=== PATIENT | female | born 1975 | race Caucasian/White ===

== ENCOUNTER → 2018-02-26 | Outpatient (CLI) | payer OTHER | END | disposition home or self-care (01) | LOC: MAMMO 14:07 | DX: Z12.31 Encounter for screening mammogram for malignant neoplasm of breast (principal) | CPT/HCPCS: 77063; 77067 ==

== ENCOUNTER → 2018-09-16 | Outpatient (CLI) | payer OTHER ==
[2015-12-29 16:06] VITALS: BP 105/67
[~2018-09-16] MED LIST: OXYC1TAB15 PO
--- NOTE | 2018-09-16 16:25 | RAD ---
Abdominal ultrasound, 09/16/2018: HISTORY: Abdominal pain The gallbladder is surgically absent. The common hepatic duct at the katerin hepatis measures 6-7 mm which is within normal limits for the postcholecystectomy state. No hepatic mass is identified. The visualized portions of the pancreas, spleen and both kidneys are unremarkable. The abdominal aorta and inferior vena cava show no abnormality. No free fluid is evident in the abdomen. IMPRESSION: 1. Status post cholecystectomy. 2. No acute abdominal abnormality is detected. Electronically signed by: Miky Loyd MD (09/16/2018 4:20 PM) [facility]
== END | disposition home or self-care (01) ==
LOC: US 15:34
PROVIDERS: ATTEND Internal Medicine Gastroenterology
DX: R10.9 Unspecified abdominal pain (principal); Z90.49 Acquired absence of other specified parts of digestive tract
CPT/HCPCS: 76700

== ENCOUNTER → 2021-06-27 | Outpatient (CLI) | payer OTHER ==
[2015-12-29 16:06] VITALS: BP 105/67
--- NOTE | 2021-06-27 15:36 | RAD ---
US BREAST BILAT HISTORY: The patient is 45 years old and is seen for Reason: RIGHT BREAST LUMP / Spl. Instructions: / History: . COMPARISON: February 26, 2018 mammogram. TECHNIQUE: CC and MLO views of both breasts were obtained. Images were processed by the [employer] computer-aided detection system. Targeted ultrasound was also performed of the bilateral breasts. DENSITY: The breast parenchyma is heterogeneously dense. This may lower the sensitivity of mammograph y. FINDINGS: Right mammogram: Well-circumscribed mass corresponding with patient's palpable concern measures 2.9 x 2.0 cm approximately 8.1 cm from the nipple posterior depth upper outer. Additional well-circumscrib ed masses within the right breast. Decreased mass within the right medial breast compared to prior. Right ultrasound: Well-circumscribed large cyst within the right breast 11:00 position 6 cm from the nipple measures 3.0 x 2.5 x 1.6 cm corresponding with mammographic finding. Left mammogram: Small with well-circumscribed mass within the left inferior medial breast measures 0. 7 cm approximately 4.3 cm from the nipple. Benign-appearing calcifications within the left outer sar[address]. Left ultrasound: Small complicated cysts within the left breast position 5 cm from the nipple measure s 0.3 x 0.3 x 0.2 cm and 6:00 position 6 cm from the nipple measures 0.2 x 0.5 x 0.2 cm. Correspondin g with mammographic findings. IMPRESSION: 1. Bilateral breast cysts corresponding with mammographic findings and palpable finding on the right . Recommend annual screening mammograms per [employer] guidelines. She will be due in one year. BI-RADS category 2 Benign Patient entered into a reminder system for annual screening mammogram. Electronically signed by: Darrian Hernandez DO (06/27/2021 3:34 PM) [id number]
--- NOTE | 2021-06-27 15:36 | RAD ---
PROCEDURE: MG DIGITAL BILAT DIAGNOSTIC MAMMO WITH MATHIEU HISTORY: The patient is 45 years old and is seen for Reason: RIGHT BREAST LUMP / Spl. Instructions: / History: . COMPARISON: February 26, 2018 mammogram. TECHNIQUE: CC and MLO views of both breasts were obtained. Images were processed by the [employer] computer-aided detection system. Targeted ultrasound was also performed of the bilateral breasts. DENSITY: The breast parenchyma is heterogeneously dense. This may lower the sensitivity of mammograph y. FINDINGS: Right mammogram: Well-circumscribed mass corresponding with patient's palpable concern measures 2.9 x 2.0 cm approximately 8.1 cm from the nipple posterior depth upper outer. Additional well-circumscrib ed masses within the right breast. Decreased mass within the right medial breast compared to prior. Right ultrasound: Well-circumscribed large cyst within the right breast 11:00 position 6 cm from the nipple measures 3.0 x 2.5 x 1.6 cm corresponding with mammographic finding. Left mammogram: Small with well-circumscribed mass within the left inferior medial breast measures 0. 7 cm approximately 4.3 cm from the nipple. Benign-appearing calcifications within the left outer sar[address]. Left ultrasound: Small complicated cysts within the left breast position 5 cm from the nipple measure s 0.3 x 0.3 x 0.2 cm and 6:00 position 6 cm from the nipple measures 0.2 x 0.5 x 0.2 cm. Correspondin g with mammographic findings. IMPRESSION: 1. Bilateral breast cysts corresponding with mammographic findings and palpable finding on the right . Recommend annual screening mammograms per [employer] guidelines. She will be due in one year. BI-RADS category 2 Benign Patient entered into a reminder system for annual screening mammogram. Electronically signed by: Darrian Hernandez DO (06/27/2021 3:33 PM) [id number]
== END ==
LOC: US 14:00
PROVIDERS: ATTEND Family Medicine
DX: N60.02 Solitary cyst of left breast (principal); N60.01 Solitary cyst of right breast; N63.11 Unspecified lump in the right breast, upper outer quadrant
CPT/HCPCS: 76641; 77066; G0279; 77062

== ENCOUNTER 2021-12-19 10:54 | Emergency (ER) | payer BC, OTHER ==
[~2021-12-19] VITALS: Ht 162.6 cm; Wt 92.9 kg
--- NOTE | 2021-12-19 11:58 | RAD ---
STUDY: US DPLX VENOUS EXTREMITY LOWER RT INDICATION: Right leg swelling. Postop knee scope 3 weeks ago. TECHNIQUE: Color-flow and pulsed wave duplex ultrasound with compression of venous structures of the right lower extremity. COMPARISON: None Available. FINDINGS: Duplex ultrasound with compression of the deep venous structures of the right lower extremity from th e common femoral vein through the popliteal vein is negative for DVT. The posterior tibial and peroneal veins are segmentally visualized and patent where seen. Normal veno us waveforms and augmentation are noted throughout. IMPRESSION: No deep venous thrombosis of the right lower extremity. Electronically signed by: Hollis Yeboah MD (12/19/2021 11:56 AM) [id number]
--- NOTE | 2021-12-19 12:10 | PHYS DOC ---
Past Medical History Past Medical History: No Pertinent History Past Surgical History: Cholecystectomy, Other Additional Past Surgical Histo: BILATERAL MYRINGOTOMY W/ TUBES,LASIK, RT knee scope Smoking Status: Unknown if ever smoked Alcohol Use: None Drug Use: None General Adult EDM: Chief Complaint: LOWER EXTREMITY SWELLING HPI: HPI: Patient is a 46 year old female who presents with 2-week history of right calf pain and 3-day history of right calf swelling. Patient states that she had a knee scope. At her postop appointment, she did mention that she was having calf pain, but at that time it was not swollen. Patient called her primary care provider this morning, but did not hear back. A friend suggested to present to the emergency department to rule out blood clot. Patient has no other complaints at this time, including shortness of breath or chest pain. Review of Systems: Review of Systems: ROS negative or noncontributory except as mentioned in HPI. Heart Score: C/O Chest Pain: No Allergies: Allergies: Allergies Coded Allergies Type Severity Reaction Last Updated Verified cephalexin Allergy Severe Anaphylaxis 12/19/21 Yes Sulfa (Sulfonamide Antibiotics) Allergy Intermediate 12/19/21 Yes Physical Exam: PE: Constitutional: Well developed, well nourished, no acute distress, non-toxic appearance. HENT: Normocephalic, atraumatic, bilateral external ears normal, nose normal. Eyes: EOMI, conjunctiva normal, no discharge. Neck: Normal range of motion, no stridor. Cardiovascular: Heart regular rate and rhythm. Lungs & Thorax: Bilateral breath sounds clear to auscultation. Skin: Warm, dry, no erythema, no rash. Extremities: Right lower leg edematous with tenderness to palpation along posterior aspect no cyanosis, negative Homans' sign, no clubbing, active ROM intact. Neurologic: Alert and oriented x4, normal motor function, normal sensory function, steady and symmetrical upright gait, no focal deficits noted. Current Patient Data: Vital Signs: Vital Signs Date Time Temp Pulse Resp B/P (MAP) Pulse Ox O2 Delivery O2 Flow Rate FiO2 12/19/21 12:23 74 18 147/86 (106) 99 Room Air 12/19/21 11:07 99.1 88 20 157/80 (105) 98 Room Air 99.1 Radiology/Procedures: Radiology/Procedures: PROCEDURE: VENOUS LOWER EXTREMITY RIGHT STUDY: US DPLX VENOUS EXTREMITY LOWER RT INDICATION: Right leg swelling. Postop knee scope 3 weeks ago. TECHNIQUE: Color-flow and pulsed wave duplex ultrasound with compression of venous structures of the right lower extremity. COMPARISON: None Available. FINDINGS: Duplex ultrasound with compression of the deep venous structures of the right lower extremity from the common femoral vein through the popliteal vein is negative for DVT. The posterior tibial and peroneal veins are segmentally visualized and patent wh ere seen. Normal venous waveforms and augmentation are noted throughout. IMPRESSION: No deep venous thrombosis of the right lower extremity. Electronically signed by: Hollis Yeboah MD (12/19/2021 11:56 AM) [id number] Course & Med Decision Making: Course & Med Decision Making Pertinent Labs and Imaging studies reviewed. (See chart for details) Patient is a 46-year-old female who recently underwent lower extremity surgical procedure presenting with unilateral lower leg swelling and pain. Venous ultrasound ordered. No clot is currently seen in the right lower extremity. Discussed return precautions with patient. All of her questions were answered. Patient follow- up with her primary care provider in about 1 week and contact her surgeon for any further postoperative concerns. Patient understands and is agreeable to discharge plan. Dragon Disclaimer: Dragon Disclaimer: This electronic medical record was generated, in whole or in part, using a voice recognition dictation system. Departure Departure Impression: Primary Impression: Right calf pain Additional Impression: Postoperative edema Disposition: 01 HOME / SELF CARE / HOMELESS Condition: STABLE Referrals: AMIE SOSA MD (PCP) Patient Instructions: Edema, [id number], Muscle Cramps Additional Instructions: EMERGENCY DEPARTMENT GENERAL DISCHARGE INSTRUCTIONS Thank you for coming to [facility] Emergency Department (ED) today and trusting us with you care. We trust that you had a positive experience in our Emergency Department. If you wish to speak to the department management, you may call the director at . YOUR FOLLOW UP INSTRUCTIONS ARE FOLLOWS: 1. Follow up with your primary care doctor. If you do not have a primary doctor, please ask for a resource list of physicians or clinics that may be able to assist you with follow up care. 2. The emergency provider has interpreted your imaging studies, if any were ordered. The radiology finance specialist also reviewed them. If there is a change in the findings, you will be notified in 48 hours when at all possible. 3. If a lab test or culture has been done, your results will be reviewed and you will be notified if you need a change in treatment. 4. Call your surgeon for further postoperative management. Follow instructions verbalized to you and refer to the printouts if needed. ADDITIONAL INSTRUCTIONS AND INFORMATION: 1. Your care today has been supervised by a physician who is specially trained in emergency care. Many problems require more than one evaluation for a complete diagnosis and treatment. We recommend that you schedule your follow up appointment as recommended to ensure complete treatment of you illness or injury. If you are unable to obtain follow up care and continue to have a prob ami, or if your condition worsens, we recommend that you return to the ED. 2. We are not able to safely determine your condition over the phone nor are we able to give sound medical advice over the phone. For these safety reasons, if you call for medical advice we will ask you to come to the ED for further evaluation. 3. If you have any questions regarding these discharge instructions please call the ED at . SAFETY INFORMATION: In the interest of safety, wellness, and injury prevention; we encourage you to wear your seat belt, if you smoke; quite smoking, and we encourage family to use a protective helmet for bicycling and other sporting events that present an increased risk for head injury. IF YOUR SYMPTOMS WORSEN OR NEW SYMPTOMS DEVELOP, OR YOU HAVE CONCERNS ABOUT YOUR CONDITION; OR IF YOUR CONDITION WORSENS WHILE YOU ARE WAITING FOR YOUR FOLLOW UP APPOINTMENT; EITHER CONTACT YOUR PRIMARY CARE DOCTOR, THE PHYSICIAN WHOSE NAME AND NUMBER YOU WERE GIVEN, OR RETURN TO THE ED IMMEDIATELY. MEAGHAN LOCKHART Dec 19, 2021 12:10
[2021-12-19 12:23] VITALS: BP 147/86
== END 2021-12-19 12:23 | disposition home or self-care (01) ==
LOC: ER 10:54
DX: M96.89 Other intraoperative and postprocedural complications and disorders of the musculoskeletal system (principal); M79.661 Pain in right lower leg; Z90.49 Acquired absence of other specified parts of digestive tract; Z88.1 Allergy status to other antibiotic agents; Z88.2 Allergy status to sulfonamides; Y84.8 Other medical procedures as the cause of abnormal reaction of the patient, or of later complication, without mention of misadventure at the time of the procedure; Y92.89 Other specified places as the place of occurrence of the external cause
CPT/HCPCS: 93971; 99284